=== PATIENT | male | born 1975 | race Asian ===

== ENCOUNTER 2018-10-19 00:22 | Inpatient (IN) | payer OTHER ==
[~2018-10-19] VITALS: Ht 167.6 cm; Wt 66.2 kg
--- NOTE | 2018-10-19 02:50 | NUR ---
rn initial notes Received patient on gurney, on ra with spo2 of 100%. No complaint of chest pain. no SOB, no discomfort noted at this time. patient is placed on secured entrance monitor SR. Right upper chest wall port a cath is in place, patient and intact. patient is a/a/ox4. V?S are taken and documented, skin assessment is done. Called AUTOMOBILE RENTAL AGENT Cesar Khoury for new orders. all safety measures are implemented, bed in low, locked position, call light in reach. Patient is oriented to our unit and asked to call for assistance. will continue to monitor patient closely.
[2018-10-19 03:00] VITALS: BP 104/69
[2018-10-19 03:18] VITALS: BP 104/64
[2018-10-19] MEDS ORDERED: HYDROCODONE/APAP 5/325MG 1 EACH TABLET PO PRN (05:30)
[2018-10-19] MEDS ORDERED: Z GUARD REMEDY 2 OZ OINT TP PRN (05:30)
[2018-10-19] MEDS ORDERED: MAG HYDROX/AL HYDROX/SIMETH 30 ML UDC PO PRN (05:30)
[2018-10-19] MEDS ORDERED: MAGNESIUM HYDROXIDE 30 ML UDC PO PRN (05:30)
[2018-10-19] MEDS ORDERED: ACETAMINOPHEN 325 MG TABLET PO PRN (05:30)
[2018-10-19] MEDS ORDERED: ONDANSETRON HCL/PF 4 MG/2 ML VIAL IVP PRN (05:30)
[2018-10-19 07:00] LABS: BASOPHILS % (AUTO) 0.9 % (0.0-2.0); CALCIUM, SERUM 8.5 mg/dL (8.5-10.1); CARBON DIOXIDE 26 mmol/L (21-32); CHLORIDE 109 mmol/L (98-107); CREATININE 0.7 mg/dL (0.6-1.3); EOSINOPHILS % (AUTO) 3.8 % (0.0-6.0); GLUCOSE 106 mg/dL (74-106); LYMPHOCYTES # (AUTO) 0.5 /CMM (0.8-4.8); LYMPHOCYTES % (AUTO) 18.9 % (20.0-44.0); MEAN CORPUSCULAR HGB CONC 36 g/dl (31.0-36.0); MEAN CORPUSCULAR VOLUME 90 fL (80-96); MONOCYTES # (AUTO) 0.6 /CMM (0.1-1.30); MONOCYTES % (AUTO) 22.1 % (2.0-12.0); NEUTROPHILS # (AUTO) 1.5 /CMM (1.8-8.9); NEUTROPHILS % (AUTO) 54.3 % (43.0-81.0); PLATELET COUNT (AUTO) 200 /CMM (150-450); RED BLOOD CELL COUNT(AUTO) 2.16 MIL/uL (4.5-6.0); SODIUM SERUM 145 mmol/L (136-145); UREA NITROGEN, BLOOD 16 mg/dL (7-18); WHITE BLOOD COUNT (AUTO) 2.7 K/uL (4.3-11.0)
--- NOTE | 2018-10-19 07:00 | NUR ---
BREASTFEEDING PROGRAM COORDINATOR INITIAL NOTES RECEIVED PT IN BED, NO C/O OF PAIN/DISTRESS NOTED AT THIS TIME. . ON TELE SR. PER LAB REPORT PT HGB 7.0. WILL CONTACT MD FOR ORDERS. BED IN LOCKED/LOWEST POSITION. CALL LIGHT IN REACH. WILL CONT TO MONITOR.
[2018-10-19 07:06] LABS: ALANINE AMINOTRANSFERASE 22 U/L (12-78); ALBUMIN 3.6 g/dL (3.4-5.0); ALKALINE PHOSPHATASE 78 U/L (46-116); ASPARTATE AMINOTRANSFERASE 13 U/L (15-37); BILIRUBIN,TOTAL 0.4 mg/dL (0.2-1.0); MAGNESIUM 2.1 mg/dL (1.8-2.4); PHOSPHORUS 4.1 mg/dL (2.5-4.9); TOTAL PROTEIN, SERUM 6.4 g/dL (6.4-8.2)
[2018-10-19 07:08] LABS: HEMATOCRIT 20 % (39-51)
[2018-10-19 07:19] LABS: CHOLESTEROL 136 mg/dL (<200); HDL CHOLESTEROL 37 mg/dL (40-60); LDL 81 mg/dL (0-99); THYROID STIMULATING HORMONE 3.559 uIU/mL (0.358-3.74); TRIGLYCERIDES 169 mg/dL (30-150)
--- NOTE | 2018-10-19 07:24 | NUR ---
RN NOTES RECEIVED A CALL FROM LAB PATIENT'S HGB IS 7.0. WILL ENDORSE TO AM SHIFT FOR ENGRAVER LETTER.
[2018-10-19 08:00] VITALS: BP 101/54
[2018-10-19 08:35] LABS: EOSINOPHILS % (MANUAL) 7 % (0-4); LYMPHOCYTES % (MANUAL) 19 % (16-48); MONOCYTES % (MANUAL) 24 % (0-11.0); NEUTROPHILS % (MANUAL) 50 (42-76)
--- NOTE | 2018-10-19 08:45 | NUR ---
COLLECTION CARD CLERK NOTES NOTIFIED MITRA CORPORATE TRAVEL AGENT OF HBG LEVEL. PER MITRA, HE WILL SEE PATIENT.
[2018-10-19] MEDS: PANTOPRAZOLE 40 MG TABLET.DR PO SCH ×2 (11:51→16:52)
[2018-10-19 12:00] VITALS: BP 101/64
[2018-10-19 16:00] VITALS: BP 96/49
[2018-10-19 16:42] LABS: OCCULT BLOOD STOOL NEGATIVE (NEGATIVE)
[2018-10-19] MEDS: IV NS 0.9% 1,000 ML IV PRN (16:49)
[2018-10-19 17:10] LABS: IRON, SERUM 216 ug/dl (50-175); TOTAL IRON BINDING CAPACITY 217 ug/dl (250-450)
[2018-10-19 17:37] LABS: FERRITIN 655 ng/mL (8-388)
[2018-10-19 18:19] LABS: HEMOGLOBIN 7.6 g/dL (13.5-17.5)
--- NOTE | 2018-10-19 19:33 | NUR ---
TRADE EMBALMER END OF SHIFT NOTES REPORTED TO PM NURSE FOR PT CHARISMA. ALL NEEDS ATTENDED TO. PT NOT IN DISTRESS.
[2018-10-19 20:00] VITALS: BP 106/61
--- NOTE | 2018-10-19 20:30 | NUR ---
ICU/INFANTRY ASSAULTMAN RECEIVED REPORT FROM NIGHT NURSE. SEE FLOWSHEET FOR ASSESSMENT, ALONG WITH ANY AND ALL SKIN ISSUES WHICH ARE ADDRESSED ALONG WITH THE EACH OF THE INTERVENTIONS TO THESE. PT IS CURRENTLY ALERTX4 AND ON ROOM AIR, TOLERATING THIS WELL. PT IS ON IVF WHICH ARE ADDRESSED ON THE IV SPREAD SHEET.PT TURNS SELF AND REPOSITIONS SELF FOR COMFORT AND CARE. WILL CONTINUE TO MONITOR THIS PT CLOSELY.
--- NOTE | 2018-10-19 21:10 | NUR ---
MADISON/HOME ORGANIZER WENT INTO ROOM GOT CONSENT FOR EDG, ANESTHESIA, AND BLOOD. ANSWERED ANY AND ALL QUESTIONS FOR THIS WELL WENT THROUGH AM AND AFTERNOON LABS.
--- NOTE | 2018-10-19 21:45 | NUR ---
AMDISON/INVOICE CODER WAREHOUSE MATERIAL HANDLER FOR GI CALLED SAID UNABLE TO BOOK OR FOR 10/20/18 SO NO NEED TO BE NPO POST MIDNIGHT AND Tuesday10/21/18 IS WHEN POSSIBLE EDG WOULD TAKE PLACE. AT THIS TIME PLACE DIET BACK FOR REGULAR DIET.
--- NOTE | 2018-10-19 22:10 | NUR ---
MADISON/DIRECTOR SPEECH AND HEARING DR. MOLINA CAME IN AT THIS TIME TO TALK TO PT. NEW ORDERS WERE RECEIVED AND CARRIED OUT.
[2018-10-20] VITALS: BP 105/61
--- NOTE | 2018-10-20 00:50 | NUR ---
MADISON/BALANCE WHEEL SCREW HOLE DRILLER PT APPEARS TO BE RESTING COMFORTABLE WITH NO SIGNS OF DISTRESS.
[2018-10-20] MEDS: IV NS 0.9% 1,000 ML IV PRN ×3 (01:18→18:52)
[2018-10-20 04:00] VITALS: BP 94/58
--- NOTE | 2018-10-20 07:20 | NUR ---
FLOOR COVERER APPRENTICE OPENING NOTES RECEIVED REPORT FROM COUNTER MANAGER CHERRY CUTTER. PT APPEARS TO BE SLEEPING COMFORTABLY AT PRESENT TIME. NO OBVIOUS SIGNS OF SOB OR PAIN NOTED AT PRESENT TIME. PT HAS A PORT A CATH R UPPER CHEST WALL RUNNING NS AT 125 ML/HR. BED IS LOCKED AND IN LOWEST POSITION WITH CALL LIGHT IN REACH WILL CONTINUE TO MONITOR.
[2018-10-20 07:56] LABS: BASOPHILS % (AUTO) 1.4 % (0.0-2.0); EOSINOPHILS % (AUTO) 4.3 % (0.0-6.0); HEMOGLOBIN 7.1 g/dL (13.5-17.5); LYMPHOCYTES # (AUTO) 0.5 /CMM (0.8-4.8); LYMPHOCYTES % (AUTO) 18.4 % (20.0-44.0); MEAN CORPUSCULAR HGB CONC 36 g/dl (31.0-36.0); MEAN CORPUSCULAR VOLUME 90 fL (80-96); MONOCYTES # (AUTO) 0.5 /CMM (0.1-1.30); MONOCYTES % (AUTO) 18.7 % (2.0-12.0); NEUTROPHILS # (AUTO) 1.5 /CMM (1.8-8.9); NEUTROPHILS % (AUTO) 57.2 % (43.0-81.0); PLATELET COUNT (AUTO) 192 /CMM (150-450); RED BLOOD CELL COUNT(AUTO) 2.17 MIL/uL (4.5-6.0); WHITE BLOOD COUNT (AUTO) 2.5 K/uL (4.3-11.0)
[2018-10-20 08:00] VITALS: BP 91/58
[2018-10-20 08:00] LABS: HEMATOCRIT 20 % (39-51)
[2018-10-20 08:06] LABS: CALCIUM, SERUM 8.6 mg/dL (8.5-10.1); CREATININE 0.7 mg/dL (0.6-1.3)
[2018-10-20 08:22] LABS: THYROID STIMULATING HORMONE 1.542 uIU/mL (0.358-3.74)
[2018-10-20] MEDS: PANTOPRAZOLE 40 MG TABLET.DR PO SCH ×2 (09:03→16:48)
[2018-10-20 09:08] LABS: EOSINOPHILS % (MANUAL) 2 % (0-4); LYMPHOCYTES % (MANUAL) 18 % (16-48); MONOCYTES % (MANUAL) 22 % (0-11.0); NEUTROPHILS % (MANUAL) 58 (42-76)
[2018-10-20 12:00] VITALS: BP 103/64
[2018-10-20 16:00] VITALS: BP 94/54
--- NOTE | 2018-10-20 18:40 | NUR ---
WEB CONTENT EXECUTIVE CLOSING NOTES REPORT WILL BE GIVEN TO NUCLEAR EQUIPMENT RESEARCH ENGINEER NURSE. PT IS AWAKE AND WATCHING TELEVISION.PT DENIES ANY SIGNS OF SOB OR PAIN AT PRESENT TIME. PT HAS A PORT A CATH R UPPER CHEST WALL RUNNING NS AT 125 ML/HR. BED IS LOCKED AND IN LOWEST POSITION WITH CALL LIGHT IN REACH WILL ENDORSE CONTINUITY OF CARE TO NUCLEAR EQUIPMENT RESEARCH ENGINEER RN.
[2018-10-20 20:00] VITALS: BP 97/59
--- NOTE | 2018-10-20 23:39 | NUR ---
Patient was diagnosed of follicular lymphoma on December 2016 s/p chemotherapy x12 month. His oncologist is Dr. Mendes at [facility] [phone]. Patient is currently on Rituximab every 2 months , has port a cath right upper chest area. He lives with family in [place]. He is ambulatory and independent with adl's. Spouse will provie ride when discharge. Addendum: 10/20/18 at 2341 by JP HENDERSON RN Amended: Links added.
[2018-10-21] VITALS (11 sets, daily range): BP systolic 93–115; BP diastolic 56–73
[2018-10-21] MEDS: IV NS 0.9% 1,000 ML IV PRN ×2 (02:52→11:04)
--- NOTE | 2018-10-21 07:30 | NUR ---
ORACLE BUSINESS ANALYST OPENING NOTES REPORT RECEIVED FROM RECEPTIONIST CLERK RN. PT IS SITTING IN BED WATCHING HIS CELLPHONE. PT HAS BEEN KEPT NPO PENDING EGD PROCEDURE. PT DENIES ANY SOB OR PAIN AT PRESENT MOMENT. PT IS A&OX4. BED IS LOCKED AND IN LOWEST POSITION WITH A PORT A CATH RUNNING 125MLS/HR NS.CALL LIGHT WITHIN REACH. WILL CONTINUE TO MONITOR.
[2018-10-21 08:56] LABS: BASOPHILS % (AUTO) 1.3 % (0.0-2.0); EOSINOPHILS % (AUTO) 3.4 % (0.0-6.0); LYMPHOCYTES # (AUTO) 0.4 /CMM (0.8-4.8); LYMPHOCYTES % (AUTO) 16.9 % (20.0-44.0); MEAN CORPUSCULAR HGB CONC 36 g/dl (31.0-36.0); MEAN CORPUSCULAR VOLUME 89 fL (80-96); MONOCYTES # (AUTO) 0.4 /CMM (0.1-1.30); MONOCYTES % (AUTO) 18.1 % (2.0-12.0); NEUTROPHILS # (AUTO) 1.4 /CMM (1.8-8.9); NEUTROPHILS % (AUTO) 60.3 % (43.0-81.0); PLATELET COUNT (AUTO) 169 /CMM (150-450); WHITE BLOOD COUNT (AUTO) 2.4 K/uL (4.3-11.0)
[2018-10-21 08:57] LABS: RED BLOOD CELL COUNT(AUTO) 1.92 MIL/uL (4.5-6.0)
[2018-10-21 09:00] LABS: HEMATOCRIT 17 % (39-51); HEMOGLOBIN 6.2 g/dL (13.5-17.5)
[2018-10-21 09:01] LABS: CALCIUM, SERUM 8.3 mg/dL (8.5-10.1); CREATININE 0.7 mg/dL (0.6-1.3); POTASSIUM 3.9 mmol/L (3.5-5.1)
--- NOTE | 2018-10-21 09:15 | NUR ---
CRITICAL LAB VALUES GIVEN BY BUSINESS DEVELOPMENT ASSOCIATE CHAPIN. SPOKE WITH HOSPITALIST MITRA AT 0900. ORDERS RECEIVED.
[2018-10-21] MEDS: PANTOPRAZOLE 40 MG TABLET.DR PO SCH ×2 (09:22→17:21)
[2018-10-21 09:52] LABS: BAND % (MANUAL) 5 % (0.0-5.0); EOSINOPHILS % (MANUAL) 3 % (0-4); LYMPHOCYTES % (MANUAL) 15 % (16-48); MONOCYTES % (MANUAL) 15 % (0-11.0); NEUTROPHILS % (MANUAL) 62 (42-76)
--- NOTE | 2018-10-21 19:13 | NUR ---
RN CLOSING NOTES REPORT GIVEN TO DIAMOND FINISHING SUPERVISOR RN. PT IS A&OX4. PT TOLERATED THE BLOOD TRANSFUSION AND DENIES ANY SOB OR PAIN. PT IS SITTING IN BED WITH BED LOCKED AD IN LOWEST POSITION WITH CALL LIGHT IN REACH. WILL ENDORSE CONTINUITY OF CARE TO DIAMOND FINISHING SUPERVISOR RN.
[2018-10-21 19:35] LABS: HEMOGLOBIN 8.2 g/dL (13.5-17.5)
--- NOTE | 2018-10-21 19:35 | NUR ---
MS RN NOTES RECEIVED PT ON BED. A/O X 4. ON ROOM AIR NO RESPIRATORY DISTRESS NOTED. IV ACCESS ON RIGHT CHEST WALL PORTACATH NO BLEEDING NOTED. HEAD OF BED ELEVATED. SIDE RAILS UP.CALL LIGHT WITHIN REACH, BED ALARM ON. WILL CONTINUE TO MONITOR PT CLOSELY.
[2018-10-22] VITALS (11 sets, daily range): BP systolic 92–110; BP diastolic 46–68
[2018-10-22] MEDS: IV NS 0.9% 1,000 ML IV PRN (05:45)
[2018-10-22 06:19] LABS: BASOPHILS % (AUTO) 1.2 % (0.0-2.0); HEMATOCRIT 21 % (39-51); HEMOGLOBIN 7.4 g/dL (13.5-17.5); LYMPHOCYTES # (AUTO) 0.4 /CMM (0.8-4.8); LYMPHOCYTES % (AUTO) 10.9 % (20.0-44.0); MEAN CORPUSCULAR HGB CONC 36 g/dl (31.0-36.0); MEAN CORPUSCULAR VOLUME 89 fL (80-96); MONOCYTES # (AUTO) 0.6 /CMM (0.1-1.30); MONOCYTES % (AUTO) 19.1 % (2.0-12.0); NEUTROPHILS # (AUTO) 2.2 /CMM (1.8-8.9); NEUTROPHILS % (AUTO) 64.8 % (43.0-81.0); PLATELET COUNT (AUTO) 184 /CMM (150-450); RED BLOOD CELL COUNT(AUTO) 2.35 MIL/uL (4.5-6.0); WHITE BLOOD COUNT (AUTO) 3.4 K/uL (4.3-11.0)
[2018-10-22 07:08] LABS: BAND % (MANUAL) 1 % (0.0-5.0); EOSINOPHILS % (MANUAL) 5 % (0-4); LYMPHOCYTES % (MANUAL) 15 % (16-48); MONOCYTES % (MANUAL) 12 % (0-11.0); NEUTROPHILS % (MANUAL) 67 (42-76)
--- NOTE | 2018-10-22 07:17 | NUR ---
MS RN NOTES NO ACUTE CHANGES NOTED DURING THE SHIFT. PROVIDED COMFORT AND SAFETY. NO ACTIVE BLEEDING NOTED. WILL ENDORSE TO THE AM NURSE FOR CONTINUITY OF CARE.
[2018-10-22] MEDS: PANTOPRAZOLE 40 MG TABLET.DR PO SCH ×2 (08:32→16:22)
--- NOTE | 2018-10-22 09:25 | NUR ---
MS RN NOTES RECEIVED PT IN BED. ALERT AND ORIENTED X4. RESPIRATION EVEN AND UNLABORED. NO SOB NOTED. PT ON REGULAR DIET ABLE TO FEED SELF. RCW PORT A CATH IN PLACE. NO S/S OF INFECTION ON IV FLUID NS 125CC PER HOUR. PLAN OF CARE DISCUSSED WITH PATIENT. SAFETY MEASURES OBSERVED. CALL LIGHT WITHIN REACHED. WILL CONTINUE PLAN OF CARE.
--- NOTE | 2018-10-22 10:30 | NUR ---
MS RN NOTE SEEN BY MITRA PEARSON DNP AT BEDSIDE WITH ORDER TO DISCHARGE BUT NEED TO TRANSFUSE 1 UNIT PRBC, WILL F\U
--- NOTE | 2018-10-22 12:35 | NUR ---
MS RN NOTE STARTED TO TRANSFUSE I UNIT PRNC , NO ADVERSE REACTION NOTED, WILL CONT TO MONITOR CLOSELY
--- NOTE | 2018-10-22 15:22 | NUR ---
MS RN NOTES SPOKE WITH DR. FRANKIE BLANCO TO DO EGD PROCEDURE IN THE MORNING. ORDERED NPO AFTER MIDNIGHT. OBTAINED CONSENT FROM PT.
--- NOTE | 2018-10-22 15:45 | NUR ---
MS RN NOTE BLOOD TRANSFUSION COMPLETED, NO ADVERSE REACTION NOTED ,WILL CONT TO MONITOR, FAMILY AT BEDSIDE ,
--- NOTE | 2018-10-22 16:54 | NUR ---
MS RN NOTES DR. FRANKIE CONNELL AT BEDSIDE OK TO DO EGD TOMORROW MORNING. PER MITRA MCNEILL DNP OK TO HOLD DISCHARGE TOMORROW
--- NOTE | 2018-10-22 18:30 | NUR ---
MS RN NOTES PATIENT IN BED RESTING COMFORTABLY NOT IN DISTRESS. SEEN BY DR. WEAVER AT BEDSIDE. WILL CONTINUE TO MONITOR.
[2018-10-23 04:00] VITALS: BP 98/56
[2018-10-23 04:21] VITALS: BP 98/56
--- NOTE | 2018-10-23 07:10 | NUR ---
MS RN OPENING NOTES RECEIVED PT LYING ON BED.ALERT/ORIENTED X4.ON ROOM AIR,TOLERATING WELL.NO SOB AND ACUTE DISTRESS NOTED.ON NPO FOR POSSIBLE EGD TODAY.IV LINE IS ON RIGHT CHEST WALL PORT A CATH.SITE IS CLEAN,DRY AND INTACT.BED IS IN LOW POSITION AND LOCKED.CALL LIGHT IS WITHIN REACH.WILL CONTINUE TO MONITOR THE PT CLOSELY.
--- NOTE | 2018-10-23 07:28 | NUR ---
MS RN NOTES NO ACUTE CHANGES NOTED DURING THE SHIFT. PROVIDED COMFORT AND SAFETY. PT KEPT NPO, NO ACTIVE BLEEDING NOTED. WILL ENDORSE TO THE AM NURSE FOR CONTINUITY OF CARE.
[2018-10-23 07:33] LABS: CALCIUM, SERUM 8.9 mg/dL (8.5-10.1); CREATININE 0.8 mg/dL (0.6-1.3); POTASSIUM 4.1 mmol/L (3.5-5.1)
[2018-10-23 07:41] LABS: BASOPHILS % (AUTO) 1.4 % (0.0-2.0); EOSINOPHILS % (AUTO) 5.6 % (0.0-6.0); HEMATOCRIT 25 % (39-51); LYMPHOCYTES # (AUTO) 0.5 /CMM (0.8-4.8); LYMPHOCYTES % (AUTO) 14.7 % (20.0-44.0); MEAN CORPUSCULAR HGB CONC 36 g/dl (31.0-36.0); MEAN CORPUSCULAR VOLUME 90 fL (80-96); MONOCYTES # (AUTO) 0.7 /CMM (0.1-1.30); MONOCYTES % (AUTO) 21.4 % (2.0-12.0); NEUTROPHILS # (AUTO) 1.8 /CMM (1.8-8.9); NEUTROPHILS % (AUTO) 56.9 % (43.0-81.0); PLATELET COUNT (AUTO) 181 /CMM (150-450); RED BLOOD CELL COUNT(AUTO) 2.77 MIL/uL (4.5-6.0); WHITE BLOOD COUNT (AUTO) 3.1 K/uL (4.3-11.0)
[2018-10-23 08:00] VITALS: BP 90/48
[2018-10-23 08:35] LABS: BAND % (MANUAL) 5 % (0.0-5.0); EOSINOPHILS % (MANUAL) 6 % (0-4); LYMPHOCYTES % (MANUAL) 14 % (16-48); MONOCYTES % (MANUAL) 19 % (0-11.0); NEUTROPHILS % (MANUAL) 56 (42-76)
[2018-10-23] MEDS: PANTOPRAZOLE 40 MG TABLET.DR PO SCH (09:00)
--- NOTE | 2018-10-23 10:10 | NUR ---
MS RN NOTES PT PICKED TO DO EGD.ALL THE CONSENT AND CHECKLIST HAS COMPLETED.
--- NOTE | 2018-10-23 11:00 | NUR ---
MS RN NOTES PT CAME BACK FROM THE PROCEDURE EGD,TOLERATING WELL.NO SOB AND ACUTE DISTRESS NOTED.VITAL SIGNS CHECKED,T-97.8,BP-95/51,R-20,P-83,O2-98%.
[2018-10-23] MEDS ORDERED: HEPARIN-LOCK FLUSH PORCINE PF 100 UNITS/1 ML (10 ML)DISP.SYRIN IV ONE (15:00)
--- NOTE | 2018-10-23 15:15 | NUR ---
MS RN NOTES RIGHT CHEST WALL PORT A CATH MUNOZ STAKEN OUT BY THE CHARGE NURSE,SOON. PER CUSTOMER PROJECT MANAGER MITRA ORDER BY THE PT REQUEST.PT TOLERATED WELL.NO SOB AND ACUTE DISTRESS NOTED.NO BLEEDING NOTED.
--- NOTE | 2018-10-23 15:30 | NUR ---
MS SECURITIES BROKER NOTES PT IS DISCHARGED TO HOME WITH ACCOMPANIED VIA PRIVATE CAR.ALL THE DISCHARGE MEDICATIONS AND FOLLOW UP APPOINTMENT HAS DISCUSSED WITH THE PT,VERBALIZED UNDERSTOOD.SKIN ASSESSMENT IS DONE,IT IS INTACT.VITAL SIGNS CHECKED AND RECORDED.IV LINE FROM LEFT HAND AND RIGHT CHEST WALL PORT A CATH IS REMOVED AND NO BLEEDING NOTED.CD FROM RADIOLOGY HAS SEND WITH PT,MADE AWARE.ON ROOM AIR,TOLERATING WELL.NO SOB AND ACUTE DISTRESS NOTED.PT REFUSED WHEELCHAIR,AMBULATED TO THE PARKING LOT WITH .NO COMPLICATIONS NOTED.
== END 2018-10-23 15:31 | disposition home or self-care (01) | DRG 812 ==
LOC: TELE1 02:39 → MEDSG1 10-21 09:14
PROVIDERS: ADMIT Nurse Practitioner Acute Care; ATTEND Nurse Practitioner Acute Care
DX: D64.81 Anemia due to antineoplastic chemotherapy (principal); C82.90 Follicular lymphoma, unspecified, unspecified site; D61.818 Other pancytopenia; K29.80 Duodenitis without bleeding; R07.9 Chest pain, unspecified; Z88.0 Allergy status to penicillin; K44.9 Diaphragmatic hernia without obstruction or gangrene; T45.1X5A Adverse effect of antineoplastic and immunosuppressive drugs, initial encounter; Y92.89 Other specified places as the place of occurrence of the external cause
CPT/HCPCS: 36415; 71046; 71250-TC; 80048-TC; 80053-TC; 80061-TC; 82272-TC; 82728-TC; 83540-TC; 83615-TC; 83735-TC; 84100-TC; 84443-TC; 84484-TC; 85025-TC; 85027-TC; 86850-TC; 86921-TC; 87081-TC; 88305-TC; 88313-TC; 88342; 93307-TC; A6253; A6402; G0378; J1642; J2704; J7030; J7040; J7050; P9016-BL